=== PATIENT | male | born 1955 | race Caucasian/White ===

== ENCOUNTER 2019-03-17 21:52 | Observation (INO) ==
[2019-03-17] MEDS ORDERED: Isovue-370 500 ML BOTTLE IVP ONE (22:32)
[2019-03-17 22:44] LABS: Hematocrit 34.3 % (37.5-50.1); Hemoglobin 10.7 g/dL (12.9-16.9); Mean Corpuscular HGB Conc 31.2 g/dL (31.6-35.5); Mean Corpuscular Hemoglobin 24.7 pg (28.0-33.3); Mean Platelet Volume 10.1 fL (9.4-12.4); Platelet Count 255 K/mcL (140-400); Red Blood Count 4.34 M/mcL (4.19-5.50); Red Cell Distribution Width 15.7 % (11.5-14.5); White Blood Count 7.5 K/mcL (4.3-11.1)
--- NOTE | 2019-03-17 22:45 | Emergency Department Note ---
Disposition Clinical Impression: Transient cerebral ischemia Qualifiers: Transient cerebral ischemia type: unspecified Qualified Code(s): G45.9 - Transient cerebral ischemic attack, unspecified Disposition: Admitted As Inpatient Condition: Good Time of Disposition: 00:30 Neuro HPI - General Chief Complaint: ED Neuro Symptoms/Deficit Stated Complaint: Transient AMS Time Seen by Provider: 03/17/19 22:29 Source: patient Mode of arrival: private vehicle Limitations: no limitations Nursing Notes Reviewed: Yes Vital Signs Reviewed: Yes - History of Present Illness HPI Narrative: 63-year-old male with past medical history of transient neurologic symptoms including dizziness, lightheadedness, difficulty holding himself up. Patient has been seen by his primary care physician several times for this however, his primary care physician stated that he could not get a CAT scan due to his insurance so he should go to the emergency Department next time this happened. Patient was at home around 2130 tonight and he felt like he was going to fall, and has been feeling dizzy since then so brought him to the department. There was a delay in evaluation due to the patient being triaged and not being brought back immediately, patient was in the waiting room for 37 minutes before being evaluated at the bedside. at bedside states that the patient's speech sounds slurred, as well as he is having difficulty with his left lower extremity. There is a mild left-sided facial droop, as well as a difference in the left side of his face when the patient smiles. - Related Data Home Medications: Home Medications Medication Instructions Recorded Confirmed Atorvastatin [Lipitor] 40 mg PO HS 11/26/17 03/17/19 Carvedilol [Coreg] 6.25 mg PO BID 11/26/17 03/17/19 Cetirizine HCl [Zyrtec] 10 mg PO DAILY PRN 11/26/17 03/17/19 Citalopram [CeleXA] 20 mg PO DAILY 11/26/17 03/17/19 Insulin NPH Hum/Reg Insulin Hm 25 unit SQ BID 11/26/17 03/17/19 [Novolin 70-30 100 Unit/ml Vial] Dulaglutide [Trulicity] 1.5 mg SQ TH 03/17/19 03/17/19 Gabapentin 800 mg PO TID 03/17/19 03/17/19 GlipiZIDE XL (24 HR) [Glucotrol XL] 10 mg PO DAILY 03/17/19 03/17/19 [place]-3/Dha/Epa/Fish Oil [Fish Oil 2 each PO BID 03/17/19 03/17/19 1,000 mg Softgel] Ondansetron ODT [Zofran ODT] 4 mg PO Q8H PRN 03/17/19 03/17/19 Allergies/Adverse Reactions: Allergies Allergy/AdvReac Type Severity Reaction Status Date / Time No Known Allergies Allergy Verified 11/26/17 09:46 Review of Systems: In addition to that documented in the HPI above, the additional ROS was obtained after the initial evaluation and after the patient's neurologic symptoms had resolved: Constitutional: Denies fevers or chills Eyes: Denies vision changes ENMT: Denies sore throat CV: Denies chest pain Resp: Denies SOB GI: Denies vomiting or diarrhea : Denies painful urination MSK: Denies recent trauma Skin: Denies new rashes Neuro: Denies new numbness or tingling or weakness Reports: transient neurologic symptoms that happen at random times Endocrine: Denies unexpected weight loss Heme: Denies bleeding disorders Past Medical History - Past Medical History Attestation: Yes The following information was validated with the patient. Medical history: Reports: diabetes, hyperlipidemia, hypertension, renal disease Psychiatric history: Reports: no psych history - Social History Smoking Status: Never smoker Smokeless Tobacco Status: No Alcohol use: Reports: none Drug use: Reports: none Physical Exam General: A&O x 3. No acute distress. Well developed, well nourished. Head: atraumatic, normocephalic. ENT: No conjunctival injection, no scleral icterus. PERRLA. EOMI. Oropharynx non- erythematous. mucous membranes moist. Initial Neuro Exam: Mild left sided facial droop with flattening of nasolabial fold when smiling, ataxis in LLE when moving heel to ulloa, mild slurring of speech, but able to be understood. Initial NIHSS 3. Neuro Exam at 2200: No focal deficits, no speech deficit, no facial droop, mentating well. BUE/BLE Str 5/5. Di UE/LE sensation intact. CN II-XII intact. Cerebellar testing with [id number] and [id number] intact. Continued mild facial assymetry on left. Still with some mild speech slurring, but better than initial presentation. No ataxia noted. Pulm: Lungs CTAB A/P. No wheezes, rales, ronchi. Cardio: RRR no m/r/g. Chest not tender to palpation. Abd: Soft, non-distended. Normoactive bowel sounds. Non-tender to palpation. No guarding. Non rigid. Extremities: Radial pulses 2+ di, dorsalis pedis/posterior tibialis 2+ di. No LE edema. No cyanosis, clubbing. Skin: warm, dry, intact. No rashes. Psych: Appropriate mood and affect. Answers questions appropriately. Cooperative with exam. - General Limitations: no limitations General appearance: alert, in no apparent distress Course Course Narrative: Pts initial presentation shows NIHSS of 3. Pt was taken to CT scan emergently. - Reevaluation(s) Reevaluation #1: Spoke with Dr. Jorgensen from [facility] and he reports no acute findings in the brain at this time. Time: 22:49 Reevaluation #2: Dr. Corado from [facility] appeared on stroke robot and performed a full stroke evaluation at bedside. He did not recommend tPA administration at this time, but he did recommend admission for further neurological workup. He suspected that this problem was neurologic in origin and may be a seizure and not a stroke. He did not suspect a vascular etiology. Time: 23:10 Vital Signs Temperature 97.6 F 03/17/19 22:10 Pulse Rate 103 03/17/19 22:10 Respiratory Rate 16 03/17/19 22:10 Blood Pressure 135/90 03/17/19 22:10 O2 Sat by Pulse Oximetry 99 03/17/19 22:10 Temperature 97.6 F 03/17/19 22:10 Pulse Rate 80 03/18/19 00:29 Respiratory Rate 16 03/18/19 00:29 Blood Pressure 108/80 03/18/19 00:29 O2 Sat by Pulse Oximetry 97 03/18/19 00:29 Oxygen Delivery Oxygen Delivery Room Air Neuro Symptoms/Deficit - MDM Narrative Medical decision making narrative: After patient's initial evaluation, his symptoms resolved over his time in the emergency department until he was back to baseline while being evaluated by the [facility] neurologists. His imaging did not reveal any acute intracranial findings. Lab work was unremarkable. EKG did not show any signs of ischemia. The [facility] neurologists did not recommend TPA administration at this time due to the improvement in his symptoms and low NIH score. He also felt that this did not seem to be a vascular issue, however he did recommend further neurologic evaluation. Patient was admitted to the hospitalist Dr. Chavez, who agreed to accept the patient to his service. Patient and family were given an opportunity at bedside to ask questions and all of their concerns were addressed. Patient and family agreed with plan for admission. Patient remained stable while in the department and his neurologic symptoms resolved during his course of treatment. - Medical Records Medical records reviewed: Yes I reviewed the patient's medical records. - Lab Data Lab results reviewed: Yes I reviewed the patient's lab results. Result diagrams: 03/17/19 22:36 03/17/19 22:36 Lab Results 03/17/19 03/17/19 03/17/19 Range/Units 22:36 22:36 22:36 WBC 7.5 (4.3-11.1) K/mcL RBC 4.34 (4.19-5.50) M/mcL Hgb 10.7 L (12.9-16.9) g/dL Hct 34.3 L (37.5-50.1) % MCV 79.0 L (83.0-100.0) fL MCH 24.7 L (28.0-33.3) pg MCHC 31.2 L (31.6-35.5) g/dL RDW 15.7 H (11.5-14.5) % Plt Count 255 (140-400) K/mcL MPV 10.1 (9.4-12.4) fL PT 11.7 (9.4-12.1) Seconds INR 1.0 APTT 32.2 (26.0-36.0) Seconds Sodium 138 (136-145) mEq/L Potassium 4.0 (3.5-5.1) mEq/L Chloride 106 (98-107) mEq/L Carbon Dioxide 25 (23-29) mEq/L BUN 11 (8-23) mg/dL Creatinine 1.32 H (0.70-1.30) mg/dL Est GFR ( Amer) > 60 (> 60) Est GFR (Non-Af Amer) 55 L (> 60) BUN/Creatinine Ratio 8 (6-26) Glucose 95 (70-105) mg/dL Calculated Osmolality 285 (280-300) Calcium 8.7 (8.6-10.3) mg/dL Troponin I < 0.03 (< 0.04) ng/mL - Radiology Data Radiology results reviewed: Yes I reviewed the patient's radiology results. Head CT 03/17/19 22:32 IMPRESSION: No acute intracranial abnormality. Findings were discussed with Dr. Tesha Hackett at 10:50 pm on 03/17/2019. D/ / Zach Jorgensen MD / Zach Jorgensen MD Interpreting Provider: Zach Jorgensen MD Head CTA 03/17/19 22:32 IMPRESSION: No acute arterial abnormality or hemodynamically significant arterial stenosis in the head or neck. D/ / Jeremy Green / Jeremy Green Interpreting Provider: Jeremy Green Neck CTA 03/17/19 22:33 IMPRESSION: No acute arterial abnormality or hemodynamically significant arterial stenosis in the head or neck. D/ / Jeremy Green / Jeremy Green Interpreting Provider: Jeremy Green - EKG Data EKG attestation: Yes I reviewed and interpreted this EKG. EKG results narrative: Heart rate 94, rhythm sinus, axis normal. [place] interval 172, QRS 94, QTc 461. No evidence of ST elevation or depression. No evidence of WPW, [place]. NIH Stroke Scale - Level of Consciousness LOC: Alert - LOC Questions LOC Questions: Answers both correctly - LOC Commands LOC Commands: Performs both correctly - Best Gaze Best Gaze: Normal - Visual Visual: No visual loss - Facial Palsy Facial Palsy: Minor asymmetry on smiling, flattened nasolabial fold - Motor Arms Motor Arm-Left: No drift for 10 seconds Motor Arm-Right: No drift for 10 seconds - Motor Legs Motor Leg-Left: No drift for 5 seconds Motor Leg-Right: No drift for 5 seconds - Limb Ataxia Limb Ataxia: Present in ONE limb - Sensory Sensory: Normal - Best Language Best Language: No aphasia - Dysarthria Dysarthria: Mild, slurs some words - Extinction and Inattention Extinction and Inattention: Normal - NIHSS Total Score NIHSS Total Score: 3 TPA Checklist - LKW: 3-4.5 hrs Add. Warnings/Precautions Patient/family understanding: The patient/family members have been counseled and understood the risk, benefit, and alternatives of treatment. Attestation Statement - Attestation Attestation: I, Naresh Guerra DO, examined this patient [id number] and my medical decision-making was reviewed with Dr. Zeina Hackett, Resident Physician. I agree with the documented findings, disposition and treatment plan as described except to the extent set forth below. I personally supervised and was present for the corral/critical portions of the procedures completed by the resident documented below. Please see my progress notes for details.
[2019-03-17 23:01] LABS: BUN/Creatinine Ratio 8 (6-26); Blood Urea Nitrogen 11 mg/dL (8-23); Calcium 8.7 mg/dL (8.6-10.3); Carbon Dioxide 25 mEq/L (23-29); Chloride 106 mEq/L (98-107); Glucose 95 mg/dL (70-105); Osmolality,Calculated 285 (280-300); Sodium 138 mEq/L (136-145); eGFR For African Americans > 60 (> 60); eGFR For Non-African Americans 55 (> 60)
[2019-03-17 23:03] LABS: Troponin I < 0.03 ng/mL (< 0.04)
[2019-03-17 23:12] LABS: Prothrombin Time 11.7 Seconds (9.4-12.1)
[2019-03-17 23:14] LABS: Activated Partial Thrombo Time 32.2 Seconds (26.0-36.0)
--- NOTE | 2019-03-17 23:30 | Emergency Department Note ---
Disposition Clinical Impression: Transient cerebral ischemia Qualifiers: Transient cerebral ischemia type: unspecified Qualified Code(s): G45.9 - Transient cerebral ischemic attack, unspecified Disposition: Admitted As Inpatient Condition: Good Time of Disposition: 00:53 General Adult HPI - General Chief complaint: ED Neuro Symptoms/Deficit Stated complaint: Transient AMS Time Seen by Provider: 03/17/19 22:29 Source: patient Mode of arrival: private vehicle Limitations: no limitations - History of Present Illness Pain Scale: 0 - Related Data Home Medications Medication Instructions Recorded Confirmed Atorvastatin [Lipitor] 40 mg PO HS 11/26/17 03/17/19 Carvedilol [Coreg] 6.25 mg PO BID 11/26/17 03/17/19 Cetirizine HCl [Zyrtec] 10 mg PO DAILY PRN 11/26/17 03/17/19 Citalopram [CeleXA] 20 mg PO DAILY 11/26/17 03/17/19 Insulin NPH Hum/Reg Insulin Hm 25 unit SQ BID 11/26/17 03/17/19 [Novolin 70-30 100 Unit/ml Vial] Dulaglutide [Trulicity] 1.5 mg SQ TH 03/17/19 03/17/19 Gabapentin 800 mg PO TID 03/17/19 03/17/19 GlipiZIDE XL (24 HR) [Glucotrol XL] 10 mg PO DAILY 03/17/19 03/17/19 [place]-3/Dha/Epa/Fish Oil [Fish Oil 2 each PO BID 03/17/19 03/17/19 1,000 mg Softgel] Ondansetron ODT [Zofran ODT] 4 mg PO Q8H PRN 03/17/19 03/17/19 Allergies Allergy/AdvReac Type Severity Reaction Status Date / Time No Known Allergies Allergy Verified 11/26/17 09:46 Past Medical History - Past Medical History Medical history: Reports: diabetes, hyperlipidemia, hypertension, renal disease Psychiatric history: Reports: no psych history - Social History Smoking Status: Never smoker Smokeless Tobacco Status: No Alcohol use: Reports: none Drug use: Reports: none Physical Exam - General Limitations: no limitations General appearance: alert, in no apparent distress Course Vital Signs Temperature 97.6 F 03/17/19 22:10 Pulse Rate 103 03/17/19 22:10 Respiratory Rate 16 03/17/19 22:10 Blood Pressure 135/90 03/17/19 22:10 O2 Sat by Pulse Oximetry 99 03/17/19 22:10 Temperature 97.6 F 03/17/19 22:10 Pulse Rate 80 03/18/19 00:29 Respiratory Rate 16 03/18/19 00:29 Blood Pressure 108/80 03/18/19 00:29 O2 Sat by Pulse Oximetry 97 03/18/19 00:29 Oxygen Delivery Oxygen Delivery Room Air Medical Decision Making - Lab Data Result diagrams: 03/17/19 22:36 03/17/19 22:36 Lab Results 03/17/19 03/17/19 03/17/19 Range/Units 22:36 22:36 22:36 WBC 7.5 (4.3-11.1) K/mcL RBC 4.34 (4.19-5.50) M/mcL Hgb 10.7 L (12.9-16.9) g/dL Hct 34.3 L (37.5-50.1) % MCV 79.0 L (83.0-100.0) fL MCH 24.7 L (28.0-33.3) pg MCHC 31.2 L (31.6-35.5) g/dL RDW 15.7 H (11.5-14.5) % Plt Count 255 (140-400) K/mcL MPV 10.1 (9.4-12.4) fL PT 11.7 (9.4-12.1) Seconds INR 1.0 APTT 32.2 (26.0-36.0) Seconds Sodium 138 (136-145) mEq/L Potassium 4.0 (3.5-5.1) mEq/L Chloride 106 (98-107) mEq/L Carbon Dioxide 25 (23-29) mEq/L BUN 11 (8-23) mg/dL Creatinine 1.32 H (0.70-1.30) mg/dL Est GFR ( Amer) > 60 (> 60) Est GFR (Non-Af Amer) 55 L (> 60) BUN/Creatinine Ratio 8 (6-26) Glucose 95 (70-105) mg/dL Calculated Osmolality 285 (280-300) Calcium 8.7 (8.6-10.3) mg/dL Troponin I < 0.03 (< 0.04) ng/mL Attestation Statement - Attestation Attestation: I, Naresh Guerra DO, examined this patient [id number] and my medical decision-making was reviewed with Dr. Zeina Hackett, Resident Physician. I agree with the documented findings, disposition and treatment plan as described except to the extent set forth below. I personally supervised and was present for the corral/critical portions of the procedures completed by the resident documented below. Please see my progress notes for details. 63-year-old male presents to the emergency room with acute onset of left-sided facial droop, slurred speech and ataxia. Patient went to get out of his car and then acutely had these complaints. He said he is on and off for several months to years. Patient has been worked up in the past was never had any CT imaging completed. Patient is alert oriented at the time of arrival. His clear visible left-sided facial droop and slurred speech and some weakness in the left upper and left lower extremity. These are all acute symptoms here today that started approximately one hour prior to arrival. Patient was triaged on the waiting room and [facility] 37 minutes before coming back to the emergency room for evaluation. Immediately evaluated the patient the bedside to complete the initial NIH stroke evaluation. Patient had an NIH of 3 on arrival. There appears to be acute on send of the symptoms here at this point mandating a stro ke evaluation that despite the fact the patient does have waxing and waning symptoms. Patient's family is at the bedside and they agree with the initial presentation and concern. Patient is otherwise stable at this point. Initial labs EKG CT imaging of the head along with CT angiography then the neck will be completed at this time under the stroke evaluation protocol. Disposition to be determined. EKG will be documented by the resident physician and reviewed by myself. Patient is otherwise clinically stable. Head is atraumatic. Pupils are equal and reactive. Oropharynx is patent. Visible left-sided facial droop is noted. Left-sided extremity weakness but otherwise no visible signs of concussion visible abnormality. Patient will have the evaluation. This time the disposition determined. confirms that this is been waxing and waning symptom presentation for several months. Disposition pending. See detailed documentation the physical exam, medical intervention, medical decision-making and disposition the resident physician's note. No critical care provider the patient's treatment course at this time. [id number] [facility] neurologist Dr. Corado reviewed the case. He does not see any acute signs of neurologic deficit or symptoms at require immediate s troke intervention. He feels this could be seizure-like activity or some arterial spasm. CT angiography and as well as CT is the head are unremarkable. Patient will be provided an aspirin here in the emergency department and then monitor closely until the admission process is completed. No other acute issues noted at this time. Patient is otherwise clinically stable with almost complete resolution the symptoms here in the emergency department. [id number] Patient was discussed with the hospitalist Dr. Chavez. Reviewed the imaging modalities completed as well as recommendation for admission for TIA versus neurologic evaluation. Patient is otherwise asymptomatic at this point. Family and patient informed of the admission request. No other concerns or issues noted in the hospitals. Aspirin has been provided. Patient will be monitoring emergency room until admission process is completed.
[2019-03-17] MEDS ORDERED: Aspirin 81 MG TAB.CHEW PO STA (23:37)
--- NOTE | 2019-03-18 01:19 | Internal Med History&Physical ---
<Jose Luis Gunn - Last Filed: 03/18/19 03:16> Date of Encounter: 03/18/19 Time of Encounter: 02:04 Internal Medicine - H&P: HPI Chief complaint: Dizzy, AMS Admitted From: Emergency Dept Plans for Post Hospital Care: Home History of present illness: Mr. Waite is a 63 year old male with past medical history of diabetes, hypertension, hyperlipidemia, chronic kidney disease stage III who presents to emergency department with complaint of dizziness. He states that he has been having symptoms for the past 20 years but they have been getting worse. He gets these episodes frequently varying between 2-3 times per day to once a week. He describes his episodes as dizziness with associated blurry vision, palpitations, slurred speech, and inability to move his arms or legs. He denies any loss of consciousness except for one time years ago. He reports no exacerbating or preceding symptoms including change in position. These have been witnessed events by his who is present at time of this interview. He has not been told that he has any jerking motions and denies any loss of bowel or bladder. He does admit to confusion after these episodes lasting for approximately 1 hour. He does state he self resolve after approximately 15 minutes however today's episode lasted for 1.5 hours. He denies any associated symptoms including fevers, chills, nausea, vomiting, urinary frequency, hesitancy, dysuria. Bowel movements are normal for him. He denies any numbness, tingling, weakness at this time. He has never been evaluated by a specialist for this. He denies any issues with hypoglycemia, usually runs in the 120s. Last known well was 0 this evening. Vital signs upon presentation significant for heart rate of 103, otherwise unremarkable. Laboratory results show a hemoglobin of 10.7 which is mildly decreased from baseline. BUNs/creatinine of 11/1.32 which is at baseline. Tr oponin was negative. Head CT was performed in the emergency room and negative for acute process. Stroke alert was called and at [facility] recommends no thrombolytics, MRI, neurology consult, EEG. CT of the head and neck was also performed in emergency department and showed no evidence of significant st enosis. At time of interview, patient symptoms have resolved and he has no complaints at this time. Past medical history: As above Past surgical history: Patient denies Social history: Former smoker 35 years ago, denies alcohol use. Occasional marijuana use Family history: Patient denies Past Med Surg Social Fam HX - Past Medical History Medical history: diabetes, hyperlipidemia, hypertension, renal disease Psychiatric history: no psych history - Past Surgical History Additional surgical history: tumor removed from lt side, rt shoulder - Social History Smoking Status: Never smoker Smokeless Tobacco Status: No Alcohol use: none Drug use: none Internal Medicine - H&P: Meds Atorvastatin [Lipitor] 40 mg PO HS 11/26/17 [History] Carvedilol [Coreg] 6.25 mg PO BID 11/26/17 [History] Cetirizine HCl [Zyrtec] 10 mg PO DAILY PRN 11/26/17 [History] Citalopram [CeleXA] 20 mg PO DAILY 11/26/17 [History] Insulin NPH Hum/Reg Insulin Hm [Novolin 70-30 100 Unit/ml Vial] 25 unit SQ BID 11/26/17 [History] Dulaglutide [Trulicity] 1.5 mg SQ TH 03/17/19 [History] Gabapentin 800 mg PO TID 03/17/19 [History] GlipiZIDE XL (24 HR) [Glucotrol XL] 10 mg PO DAILY 03/17/19 [History] [place]-3/Dha/Epa/Fish Oil [Fish Oil 1,000 mg Softgel] 2 each PO BID 03/17/19 [History] Ondansetron ODT [Zofran ODT] 4 mg PO Q8H PRN 03/17/19 [History] Allergy/AdvReac Type Severity Reaction Status Date / Time No Known Allergies Allergy Verified 11/26/17 09:46 All Systems PM: A 10-system review of systems was performed and is negative for pertinent findings except as documented above in the HPI. Review of systems: - Constitutional: Denies fevers, chills, weight loss, generalized fatigue - Head/Neck: Denies KHANNA, neck stiffness - EENT: Admits to double/blurry vision. Denies tinnitus, auditory changes, rhinorrhea, congestion, sore throat, odynaphagia - CVS: Admits to palpitations, infrequent chest pain. Denies chest pain, AMAYA, orthopnea, edema, PND, - Pulm: Denies SOB, cough, sputum, hematemesis, wheezing - GI: Denies abdominal pain, anorexia, nausea, vomiting, diarrhea, constipation, melena - : Denies dysuria, increased frequency, urgency, hematuria, - Heme: Denies ease of bleeding or bruising - MSK: Denies joint pain, limited ROM - Skin: Denies rashes, ulcers, color changes, - Neuro: Admits to slurred speech. Denies KHANNA, paresthesias, ataxia, - Constitutional Vitals: Temp Pulse Resp BP Pulse Ox 97.6 F 81 16 105/78 97 03/17/19 22:10 03/18/19 00:58 03/18/19 00:58 03/18/19 00:58 03/18/19 00:58 Exam: Gen.: Vitals noted. No acute distress. AAOx3, resting comfortably in bed. HEENT: PERRL/EOMI, oropharynx clear, Normocephalic, atraumatic, MMM Cardiac: RRR, no murmur, +S1/S2, No BLE edema Pulmonary: CTA bilaterally, no wheezes, rales or rhonchi, equal chest expansion, unlabored breathing Abdomen: soft, nontender, BS noted, no guarding, no palpable HSM Skin: warm and dry, no visible lesions. MSK: ROM intact, no joint swelling noted, gait no assessed while in bed. Non tender calf or clubbing Neuro: A&Ox3, moves all extremities, muscle strength 5/5 in upper and lower extremities, cranial nerves II through XII intact, sensation intact, finger to nose intact, [id number] within normal limits. Horizontal nystagmus present. Psych: Appropriate mood and behavior, AOx3 Internal Med - H&P Results - Labs CBC & Chem 7: 03/17/19 22:36 03/17/19 22:36 Labs: Short CBC 03/17/19 Range/Units 22:36 WBC 7.5 (4.3-11.1) K/mcL Hgb 10.7 L (12.9-16.9) g/dL Hct 34.3 L (37.5-50.1) % Plt Count 255 (140-400) K/mcL BMP 03/17/19 22:36 Sodium 138 Potassium 4.0 Chloride 106 Carbon Dioxide 25 BUN 11 Creatinine 1.32 H Glucose 95 Calcium 8.7 Cardiac Enzymes 03/17/19 Range/Units 22:36 Troponin I < 0.03 (< 0.04) ng/mL - Impressions ITS Impressions Head CT 03/17/19 22:32 IMPRESSION: No acute intracranial abnormality. Findings were discussed with Dr. Tesha Hackett at 10:50 pm on 03/17/2019. D/ / Zach Jorgensen MD / Zach Jorgensen MD Interpreting Provider: Zach Jorgensen MD Head CTA 03/17/19 22:32 IMPRESSION: No acute arterial abnormality or hemodynamically significant arterial stenosis in the head or neck. D/ / Jeremy Green / Jeremy Green Interpreting Provider: Jeremy Green Neck CTA 03/17/19 22:33 IMPRESSION: No acute arterial abnormality or hemodynamically significant arterial stenosis in the head or neck. D/ / Jeremy Green / Jeremy Green Interpreting Provider: Jeremy Green - Assessment and Plan (1) Transient cerebral ischemia Current Visit: Yes Status: Acute Assessment and plan: - Patient's episodes consist of dizziness, blurred vision, AMS, slurred speech, inability to move limbs, palpitations - Etiology is not entirely clear, differential includes TIA, seizures, BPPV, orthostatic Hypotension, arrythmia, hypoglycemia - Suspect neurologic etiology, however cardiac is also a possibility - Patient denies LOC, however given his self reported confusion after the events, unsure if this is accurate. - Asymptomatic at this time - Per [facility] after stroke alert, recommend MRI, EEG, Neuro consult. CVA less likely - CT head negative for acute process - CTA head and neck show no significant stenosis to explain symptoms Plan - EEG - MRI head - Neurology consult - Echocardiogram, telemetry - Orthostatic vitals - Will add aspirin, high intensity statin Qualifiers: Transient cerebral ischemia type: unspecified Qualified Code(s): G45.9 - Transient cerebral ischemic attack, unspecified (2) HTN (hypertension) Current Visit: Yes Status: Chronic Assessment and plan: - Well controlled, will not start meds in the setting of possible TIA - Allow for permissive HTN Qualifiers: Hypertension type: essential hypertension Qualified Code(s): I10 - Essential (primary) hypertension (3) CKD (chronic kidney disease) stage 3, GFR 30-59 ml/min Current Visit: Yes Status: Chronic Assessment and plan: - BUN/Cr of 07/18.32, which appears to be at baseline - Baseline Cr appears to be 1.1-1.3 - Will continue to monitor with labs - Avoid nephrotoxins, renally dose meds (4) HLD (hyperlipidemia) Current Visit: Yes Status: Acute Assessment and plan: - Statin as above Qualifiers: Hyperlipidemia type: unspecified Qualified Code(s): E78.5 - Hyperlipidemia, unspecified (5) Diabetes mellitus Current Visit: Yes Status: Chronic Assessment and plan: - Blood sugar of 95 on presentation - Insulin dependent at home - Most recent A1c of 6.5% on 02/13/19 - Will give ADA diet, low SSI, home basal insulin Qualifiers: Diabetes mellitus type: type 2 Diabetes mellitus shelter insulin use: wi th long term acute care registered nurse use Diabetes mellitus complication status: with kidney compl ications Diabetes mellitus complication detail: with chronic kidney disease Chronic kidney disease stage: stage 3 (moderate) Qualified Code(s): E11.22 - Type 2 diabetes mellitus with diabetic chronic kidney disease; N18.3 - Chronic kidney disease, stage 3 (moderate); Z79.4 - custodial (current) use of insulin (6) DVT prophylaxis Current Visit: Yes Status: Acute Assessment and plan: Subcutaneous heparin - Time Spent With Patient Total time spent is greater than 50% in coordination of care (as documented) at patient's floor/unit and/or counseling patient: <Viktor Chavez - Last Filed: 03/18/19 06:06> Date of Encounter: 03/18/19 Internal Medicine - H&P: HPI History of present illness: Mr. Waite is a 63 year old male Past Med Surg Social Fam HX - Family History Mother Adopted: [place]: MAYNOR Family Member Ethnicity: Non- Living Status: Age at : 58 Cause of : STOMACH CANCER Hx Family Cardiac Disorders: No Hx Family Respiratory Disorders: No Hx Family Cancer: Yes Hx Family GI Disorders: No Hx Family Genitourinary Disorders: No Hx Family Endocrine Disorder: No Hx Family Musculoskeletal Disorders: No Hx Family Neuromuscular Disorders: No Hx Family Neurologic Disorders: No Hx Family HEENT Disorders: No Hx Family Autoimmune Disorders: No Hx Family Reproductive Disorders: No Hx Family Psychosocial Disorders: No Hx Family Medical Disorders: No All Systems PM: A 10-system review of systems was performed and is negative for pertinent findings except as documented above in the HPI. - Constitutional Vitals: Temp Pulse Resp BP Pulse Ox 98 F 76 16 121/81 98 03/18/19 02:14 03/18/19 02:14 03/18/19 02:14 03/18/19 02:14 03/18/19 02:14 Internal Med - H&P Results - Labs CBC & Chem 7: 03/18/19 04:21 03/18/19 04:21 Labs: Short CBC 03/17/19 03/18/19 Range/Units 22:36 04:21 WBC 7.5 6.6 (4.3-11.1) K/mcL Hgb 10.7 L 10.2 L (12.9-16.9) g/dL Hct 34.3 L 32.5 L (37.5-50.1) % Plt Count 255 230 (140-400) K/mcL Neutrophils # 3.1 (1.6-8.9) K/mcL BMP 03/17/19 03/18/19 22:36 04:21 Sodium 138 138 Potassium 4.0 3.5 Chloride 106 107 Carbon Dioxide 25 24 BUN 11 10 Creatinine 1.32 H 1.19 Glucose 95 95 Calcium 8.7 8.4 L Cardiac Enzymes 03/17/19 Range/Units 22:36 Troponin I < 0.03 (< 0.04) ng/mL - Impressions ITS Impressions Head CT 03/17/19 22:32 IMPRESSION: No acute intracranial abnormality. Findings were discussed with Dr. Tesha Hackett at 10:50 pm on 03/17/2019. D/ / Zach Jorgensen MD / Zach Jorgensen MD Interpreting Provider: Zach Jorgensen MD Head CTA 03/17/19 22:32 IMPRESSION: No acute arterial abnormality or hemodynamically significant arterial stenosis in the head or neck. D/ / Jeremy Geren / Jeremy Green Interpreting Provider: Jeremy Green Neck CTA 03/17/19 22:33 IMPRESSION: No acute arterial abnormality or hemodynamically significant arterial stenosis in the head or neck. D/ / Jeremy Green / Jeremy Green Interpreting Provider: Jeremy Green - Time Spent With Patient Total time spent is greater than 50% in coordination of care (as documented) at patient's floor/unit and/or counseling patient: - Attending Attestation I saw and evaluated the patient. I reviewed the residents note, performed my own physical examination and agree with findings and plan as documented in the residents note. Patient seen and examined on 03/18/19. Now asymptomatic. Possible vascular vs. Neuro cause. [facility] recommended MRI, EEG and neuro consultation. Will follow up with neurology. Has been going on for 20 years, now becoming more frequent.
[2019-03-18] MEDS ORDERED: Ondansetron 4 MG/2 ML VIAL IVP PRN (01:57)
[2019-03-18] MEDS ORDERED: Naloxone 0.4 MG/ML INJ IVP PRN (01:57)
[2019-03-18] MEDS ORDERED: Acetaminophen 325 MG TABLET PO PRN (01:57)
[2019-03-18] MEDS ORDERED: *HR* Dextrose 50 % in Water (Syg) 50 ML SYRINGE IVP PRN (02:02)
[2019-03-18] MEDS ORDERED: Dextrose Gel 15 GM/37.5 ML TUBE PO PRN ×2 (02:02)
[2019-03-18] MEDS ORDERED: D5% in Water 1,000 ML IVC PRN (02:02)
[2019-03-18 05:26] LABS: Basophils # 0.1 K/mcL (0.0-0.2); Basophils % 0.8 %; Eosinophils # 0.1 K/mcL (0.0-0.6); Eosinophils % 1.7 %; Hematocrit 32.5 % (37.5-50.1); Hemoglobin 10.2 g/dL (12.9-16.9); Immature Granulocytes % 0.2 % (0-4); Lymphocytes # 2.6 K/mcL (0.6-4.6); Lymphocytes % 39.8 %; Mean Corpuscular HGB Conc 31.4 g/dL (31.6-35.5); Mean Corpuscular Hemoglobin 24.8 pg (28.0-33.3); Mean Corpuscular Volume 78.9 fL (83.0-100.0); Mean Platelet Volume 10.3 fL (9.4-12.4); Monocytes # 0.7 K/mcL (0.0-1.3); Monocytes % 10.6 %; Neutrophils # 3.1 K/mcL (1.6-8.9); Platelet Count 230 K/mcL (140-400); Red Blood Count 4.12 M/mcL (4.19-5.50); Red Cell Distribution Width 15.9 % (11.5-14.5); Segmented Neutrophils % 46.9 %; White Blood Count 6.6 K/mcL (4.3-11.1)
[2019-03-18 05:47] LABS: BUN/Creatinine Ratio 8 (6-26); Blood Urea Nitrogen 10 mg/dL (8-23); Calcium 8.4 mg/dL (8.6-10.3); Carbon Dioxide 24 mEq/L (23-29); Chloride 107 mEq/L (98-107); Chol/HDL Ratio 4.3 (0-4.9); Cholesterol 90 mg/dL (< 200); Glucose 95 mg/dL (70-105); HDL Cholesterol 21 mg/dL (40-59); LDL Cholesterol,Calculated 39 mg/dL (0-99); Magnesium 2.1 mg/dL (1.6-2.6); Osmolality,Calculated 285 (280-300); Potassium 3.5 mEq/L (3.5-5.1); Sodium 138 mEq/L (136-145); Triglycerides 150 mg/dL (< 150); eGFR For African Americans > 60 (> 60); eGFR For Non-African Americans > 60 (> 60)
[2019-03-18] MEDS ORDERED: *HR* Heparin 5,000 UNIT/ML VIAL SQ SCH (06:00)
[2019-03-18] MEDS: Insulin LISPRO 300 UNITS/3 ML VIAL SQ SCH ×2 (07:13→12:16)
[2019-03-18] MEDS: Gabapentin 400 MG CAPSULE PO SCH ×2 (07:49→14:47)
[2019-03-18] MEDS ORDERED: Aspirin 81 MG TAB.CHEW PO SCH (09:00)
[2019-03-18] MEDS ORDERED: Insulin DETEMIR 100 UNIT/ML X5UNITS SQ SCH (09:00)
--- NOTE | 2019-03-18 11:41 | Neurology - Consult Note ---
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 CT/CTA head/neck, MRI brain negative for abnormality TIA is considered unlikely due to frequency, chronicity, lack of comorbidities, lack of imaging or lab abnormalities Orthostatic Hypotension unlikely due to irrelevance to position, and normal orthostatic blood pressures Hypoglycemia unlikely due to irrelevance to acivity or time of day Metabolic derangement less likely due to frequency, chronicity, and normal labs Most likely etiology is Non-convulsive Complex Partial Seizures without intractability EEG performed and report pending, hepatic panel ordered and pending Given highly suspicious history will start Keppra, EEG may or may not be confirmatory Starting Keppra 250mg BID x 2days then 500mg BID Will continue to follow inpatient and recommend follow up outpatient Qualifiers: Status epilepticus: without status epilepticus Qualified Code(s): G40.209 - Localization-related (focal) (partial) symptomatic epilepsy and epileptic syndromes with complex partial seizures, not intractable, without status epilepticus History of Present Illness Chief complaint: Lightheadedness HPI: Mr. Waite is a 63 year old male with a past medical history of DM, HTN, HLD, CKD. He presented with the chief complaint of episodes of lightheadedness, most recently yesterday. He describes the episodes as occurring at any time of day, with any kind of activity, independent of positional changes. Episodes onset suddenly, with the main symptom being lightheadedness, feeling that he might pass out, sometimes associated with shortness of breath, sometimes associated with palpitations, sometimes associated with syncope, sometimes associated with altered mental status, usually associated with weakness and tremor of extremities. Episodes can occur from once a month to several times a day, and usually last several minutes. They have occurred for over 20 years. These episodes were evaluated 20 years ago without testing according to the patient. These episodes were evaluated again several years ago with cardiac but not neurological testing according to the patient. He presents to the hospital this admission because the episodes are increasing in frequency and duration, the episode yesterday lasting over an hour. His is present and confirms this history. On admission head and neck CT/CTA are without acute abnormalities, as are EKG and general labs. Past Med Surg Social Fam HX - Past Medical History Medical history: diabetes, hyperlipidemia, hypertension, renal disease Psychiatric history: no psych history - Past Surgical History Additional surgical history: tumor removed from lt side, rt shoulder - Social History Smoking Status: Never smoker Smokeless Tobacco Status: No Alcohol use: none Drug use: none - Family History Mother Adopted: [place]: MAYNOR Family Member Ethnicity: Non- Living Status: Age at : 58 Cause of : STOMACH CANCER Hx Family Cardiac Disorders: No Hx Family Respiratory Disorders: No Hx Family Cancer: Yes Hx Family GI Disorders: No Hx Family Genitourinary Disorders: No Hx Family Endocrine Disorder: No Hx Family Musculoskeletal Disorders: No Hx Family Neuromuscular Disorders: No Hx Family Neurologic Disorders: No Hx Family HEENT Disorders: No Hx Family Autoimmune Disorders: No Hx Family Reproductive Disorders: No Hx Family Psychosocial Disorders: No Hx Family Medical Disorders: No Medications and Allergies Atorvastatin [Lipitor] 40 mg PO HS 11/26/17 [History] Carvedilol [Coreg] 6.25 mg PO BID 11/26/17 [History] Cetirizine HCl [Zyrtec] 10 mg PO DAILY PRN 11/26/17 [History] Citalopram [CeleXA] 20 mg PO DAILY 11/26/17 [History] Insulin NPH Hum/Reg Insulin Hm [Novolin 70-30 100 Unit/ml Vial] 25 unit SQ BID 11/26/17 [History] Dulaglutide [Trulicity] 1.5 mg SQ TH 03/17/19 [History] Gabapentin 800 mg PO TID 03/17/19 [History] GlipiZIDE XL (24 HR) [Glucotrol XL] 10 mg PO DAILY 03/17/19 [History] [place]-3/Dha/Epa/Fish Oil [Fish Oil 1,000 mg Softgel] 2 each PO BID 03/17/19 [History] Ondansetron ODT [Zofran ODT] 4 mg PO Q8H PRN 03/17/19 [History] LevETIRAcetam [Keppra] 500 mg PO BID #60 tablet 03/18/19 [Rx] Allergy/AdvReac Type Severity Reaction Status Date / Time No Known Allergies Allergy Verified 11/26/17 09:46 All Systems: The remainder of the systems were reviewed and are negative Physical Examination - Vital Signs Vital Signs: Initial Vital Signs Temp Pulse Resp BP Pulse Ox 97.6 F 103 16 135/90 99 03/17/19 22:10 03/17/19 22:10 03/17/19 22:10 03/17/19 22:10 03/17/19 22:10 - Exam Exam: Alert and Oriented x 3 Cranial nerves 3-7 and 9-12 intact, cranial nerves 2 and 8 intact but not quantified Cerebellar testing including finger to nose and heel to ulloa normal Motor 5/5 in bilateral deltoid, biceps, triceps, log driver, iliopsoas, vastus, hamstrings, tibialis anterior Light tough sensation equal bilaterally in face, upper extremities, lower extremities DTR intact, equal, and not hyperreflexive bilaterally in biceps, triceps, pa tellar tendons, and achilles tendons Results - Laboratory Findings CBC and BMP: 03/18/19 04:21 03/18/19 04:21 Abnormal lab findings: Abnormal lab results RBC 4.12 M/mcL (4.19-5.50) L 03/18/19 04:21 Hgb 10.2 g/dL (12.9-16.9) L 03/18/19 04:21 Hct 32.5 % (37.5-50.1) L 03/18/19 04:21 MCV 78.9 fL (83.0-100.0) L 03/18/19 04:21 MCH 24.8 pg (28.0-33.3) L 03/18/19 04:21 MCHC 31.4 g/dL (31.6-35.5) L 03/18/19 04:21 RDW 15.9 % (11.5-14.5) H 03/18/19 04:21 1.32 mg/dL (0.70-1.30) H 03/17/19 22:36 Est GFR (Non-Af Amer) 55 (> 60) L 03/17/19 22:36 POC Glucose 101 mg/dL (70-99) H 03/17/19 22:34 Calcium 8.4 mg/dL (8.6-10.3) L 03/18/19 04:21 Triglycerides 150 mg/dL (< 150) H 03/18/19 04:21 21 mg/dL (40-59) L 03/18/19 04:21 Consult Discharge Plan - Plan Instructions: Levetiracetam (By mouth), Transient Ischemic Attack (DC), Epilepsy (DC) Referrals: Henry Renae MD [Primary Care Provider] - (Appt W/R) Benito Quinones MD [Partnered Physician] - (Appointment has been requested. 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 Regardless suggested starting him on anticonvulsant therapy Asked patient to continue monitoring these as spells and keep track of them We will reevaluate him back in clinic in 3-4 weeks Patient also supposed to be on seizure precautions; informed the patient about it he agrees with the plan Patient was asked not to drive until seizure-free for 6 months. Patient was asked not to work in close proximity of machines with moving parts, not to swim unsupervised, not to take tub baths or showers with water accumulation, and not to work at high places. Benito Quinones MD Qualifiers: Status epilepticus: without status epilepticus Qualified Code(s): G40.209 - Localization-related (focal) (partial) symptomatic epilepsy and epileptic syndromes with complex partial seizures, not intractable, without status epilepticus History of Present Illness HPI: Mr. Waite is a 63 year old male All Systems: The remainder of the systems were reviewed and are negative Physical Examination - Vital Signs Vital Signs: Initial Vital Signs Temp Pulse Resp BP Pulse Ox 97.6 F 103 16 135/90 99 03/17/19 22:10 03/17/19 22:10 03/17/19 22:10 03/17/19 22:10 03/17/19 22:10 - Exam Exam: GENERAL: Comfortable in no acute distress HEENT: Normal LUNGS: CTA HEART: RRR, S1 S2 Audible, no murmur EXTREMITIES: No Pedal edema. DETAILED NEUROLOGICAL EXAMINATION: MENTAL STATUS: Oriented to person, place, date and situation. Memory: knows the President, Aware of recent events Recent Memory Intact, Attention span is normal Cranial Nerve Examination: CN - II: Visual Acuity, Field of Vision Normal, Fundus examination: No disk edema, Pupils- size shape reaction to light and accommodation: All normal. CN III, IV, : External ocular movements were intact, Pupils were reactive, Nodrooping of the eyelids CN V: Sensation over the face to light touch and pinprick all normal. Corneal reflexes not tested, jaw jerk normal. CN VII: No facial asymmetry, no flattening of nasolabial folds, no difficulty in closing the eyes, no loss of forehead wrinkles, no difficulty in eye-closure, frowning raising eyebrows. CNVIII: No significant hearing loss CN IX, X: Uvula centralized not deviated, Gag reflex: Not tested CN X1: Sternocleidomastoid, trapezius, normal or evidence of any weakness. CN X11: No Dysarthria, no wasting or fibrilation f tongue muscles, no deviation, tongue muscle strength normal. Motor examination: No hypertrophy, tone was normal, power grade 0-5 Upper limbs Proximal- No difficulty in lifting the arms above the head. Distal- No weakness in distal muscles On formal testing 5/5 all over Lower limbs On formal testing 5/5 all over Coordination: [id number] normal. Target pursuit normal finger tapping normal, Rapid alternating moment of wrist normal Sensory system: Superficial sensations- Touch normal. Pain- Pinprick, Temperature all normal, Deep sensation normal, Joint position sense normal. Cortical sensation, Tactile discrimination, localization and extinction all normal. Deep tendon reflexes. Symmetrical bilateral, No evidence of Babinski. No sign of meningeal irritation Gait Examination: Deferred Results - Laboratory Findings CBC and BMP: 03/18/19 04:21 03/18/19 04:21 Abnormal lab findings: Abnormal lab results RBC 4.12 M/mcL (4.19-5.50) L 03/18/19 04:21 Hgb 10.2 g/dL (12.9-16.9) L 03/18/19 04:21 Hct 32.5 % (37.5-50.1) L 03/18/19 04:21 MCV 78.9 fL (83.0-100.0) L 03/18/19 04:21 MCH 24.8 pg (28.0-33.3) L 03/18/19 04:21 MCHC 31.4 g/dL (31.6-35.5) L 03/18/19 04:21 RDW 15.9 % (11.5-14.5) H 03/18/19 04:21 1.32 mg/dL (0.70-1.30) H 03/17/19 22:36 Est GFR (Non-Af Amer) 55 (> 60) L 03/17/19 22:36 POC Glucose 101 mg/dL (70-99) H 03/17/19 22:34 Calcium 8.4 mg/dL (8.6-10.3) L 03/18/19 04:21 Triglycerides 150 mg/dL (< 150) H 03/18/19 04:21 21 mg/dL (40-59) L 03/18/19 04:21
--- NOTE | 2019-03-18 14:05 | Electrocardiograph Report ---
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
[2019-03-18 15:32] LABS: Albumin 4.2 g/dL (3.5-5.7); Albumin/Globulin Ratio 1.7 (1.1-2.2); Bilirubin,Direct 0.1 mg/dL (0.0-0.2); Bilirubin,Indirect 0.3 mg/dL (0.0-1.2); Bilirubin,Total 0.4 mg/dL (0.3-1.0); Globulin 2.5 g/dL (2.4-3.5); Total Protein 6.7 g/dL (6.4-8.9)
[2019-03-18 15:55] VITALS: BP 130/83
--- NOTE | 2019-03-18 16:00 | Discharge Summary ---
- NOTES TO OUTPATIENT PROVIDER Notes to Outpatient Provider: f/u with PCP in one week. f/u with Neurology Dr. Gaytan in 3-4 weeks. 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 Priority: Secondary Status: Chronic Qualifiers: Status epilepticus: without status epilepticus Qualified Code(s): G40.209 - Localization-related (focal) (partial) symptomatic epilepsy and epileptic syndromes with complex partial seizures, not intractable, without status epilept icus (3) HLD (hyperlipidemia) Priority: Secondary Status: Chronic Qualifiers: Hyperlipidemia type: unspecified Qualified Code(s): E78.5 - Hyperlipidemia, unspecified (4) CKD (chronic kidney disease) stage 3, GFR 30-59 ml/min Priority: Secondary Status: Chronic (5) Diabetes mellitus Priority: Secondary Status: Chronic Qualifiers: Diabetes mellitus type: type 2 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 Waite is a 63 year old male with past medical history of diabetes, hypertension, hyperlipidemia, chronic kidney disease stage III who presented to emergency department with complaint of dizziness. He stated that he has been having symptoms for the past 20 years but they have been getting worse lately. He gets these episodes frequently varying between 2-3 times per day to once a week. He describes his episodes as dizziness with associated blurry vision, palpitations, slurred speech, and inability to move his arms or legs. He did stated they were self resolve after approximately 15 minutes however y/d's episode lasted for 1.5 hours. He was admitted in the hospital placed on manager monitoring. He he did not have any more does episodes. His head and neck CT/CTA did not show any acute abnormalities. His brain MRI did not show any acute infarction. Patient was evaluated by a neurologist who thinks his symptoms are consistent with complex partial seizure disorder without intractable epilepsy. So started him on Keppra 250mg PO BID x 2 days then continue at 500mg PO BID. Also recommended to follow up with neurologist as outpatient. Will d/c him home in stable condition today. His LFT's are WNL. - Time Spent with Patient Total time spent providing and/or coordinating discharge services: Time spent: D/C greater than 8 hours after Admission (I provided qcur-lf-crtt service to this patient more than 8 hrs apart since pt got admitted in the hospital by my colleague.) - Discharge Medications Prescriptions: New LevETIRAcetam [Keppra] 500 mg PO BID #60 tablet Continued Carvedilol [Coreg] 6.25 mg PO BID Insulin NPH Hum/Reg Insulin Hm [Novolin 70-30 100 Unit/ml Vial] 25 unit SQ BID Citalopram [CeleXA] 20 mg PO DAILY Atorvastatin [Lipitor] 40 mg PO HS Cetirizine HCl [Zyrtec] 10 mg PO DAILY PRN PRN Reason: Allergy Symptoms Dulaglutide [Trulicity] 1.5 mg SQ TH Gabapentin 800 mg PO TID GlipiZIDE XL (24 HR) [Glucotrol XL] 10 mg PO DAILY Martinez-3/Dha/Epa/Fish Oil [Fish Oil 1,000 mg Softgel] 2 each PO BID Ondansetron ODT [Zofran ODT] 4 mg PO Q8H PRN PRN Reason: Nausea And Vomiting Home Medications: Atorvastatin [Lipitor] 40 mg PO HS 11/26/17 [History] Carvedilol [Coreg] 6.25 mg PO BID 11/26/17 [History] Cetirizine HCl [Zyrtec] 10 mg PO DAILY PRN 11/26/17 [History] Citalopram [CeleXA] 20 mg PO DAILY 11/26/17 [History] Insulin NPH Hum/Reg Insulin Hm [Novolin 70-30 100 Unit/ml Vial] 25 unit SQ BID 11/26/17 [History] Dulaglutide [Trulicity] 1.5 mg SQ TH 03/17/19 [History] Gabapentin 800 mg PO TID 03/17/19 [History] GlipiZIDE XL (24 HR) [Glucotrol XL] 10 mg PO DAILY 03/17/19 [History] Martinez-3/Dha/Epa/Fish Oil [Fish Oil 1,000 mg Softgel] 2 each PO BID 03/17/19 [History] Ondansetron ODT [Zofran ODT] 4 mg PO Q8H PRN 03/17/19 [History] LevETIRAcetam [Keppra] 500 mg PO BID #60 tablet 03/18/19 [Rx] Allergies/Adverse Reactions: Allergy/AdvReac Type Severity Reaction Status Date / Time No Known Allergies Allergy Verified 11/26/17 09:46 Date of admission: 03/18/19 00:33 Primary care physician: Henry Renae MD Consults: 03/18/19 01:58 Consult to Neurology [CONS] Routine Consulting Provider: Neurology [facility] Reason for Consult: Presyncope vs TIA Call Completed: No 03/18/19 11:56 Consult to Interpret Exam [CONS] Routine Consulting Provider: Benito Quinones I Consult to Interpret Exam: Interpret EEG - Constitutional Vitals: Temp Pulse Resp BP Pulse Ox 98.3 F 82 16 120/82 97 03/18/19 11:39 03/18/19 11:39 03/18/19 11:39 03/18/19 11:39 03/18/19 11:39 General appearance: Present: cooperative, A&O X 3, no acute distress, answers questions appropriately Exam: Gen: Alert, awake, Oriented to time,place and person Chest: Diminished breath sounds B/L, No wheezing, No crackles, No rales Heart: S1S2+ RRR No murmurs Abd: Soft, NT, BS +, No organomegaly Ext: No edema, pulses are palpable, No calf tenderness Neuro : No acute focal neuro deficits noticed Skin: No rash. - Patient Status Disposition: Home, Self-Care Condition: Good Overall status at discharge: patient is back to baseline - Discharge Instructions Follow Up With: Henry Renae MD [Primary Care Provider] - (Appt W/R) Benito Quinones MD [Partnered Physician] - - Diet and Activity Activity: increase activity as tolerated Diet: low salt diet
[2019-03-18] MEDS ORDERED: levETIRAcetam 250 MG TABLET PO SCH (18:00)
[2019-03-18] MEDS ORDERED: Insulin LISPRO 300 UNITS/3 ML VIAL SQ SCH (21:00)
[2019-03-20] MEDS ORDERED: levETIRAcetam 250 MG TABLET PO SCH (18:00)
== END 2019-03-18 16:21 | disposition home or self-care (01) ==
LOC: 3BNU 21:52 → EMEROOARM 21:52 → SUATTDRO 03-18 00:33 → 3BNU 03-18 01:32
PROVIDERS: ADMIT Family Medicine; ATTEND Family Medicine